=== PATIENT | female | born 1970 | race Caucasian/White ===

== ENCOUNTER → 2023-11-05 | Outpatient (CLI) | payer BC ==
--- NOTE | 2023-11-06 10:12 | MM ---
Reason for Exam: Screening (asymptomatic). Last mammogram was performed 1 year(s) and 2 month(s) ago. Patient History: Menarche at age 12. First Full-Term at age 41. Late child-bearing (after 30). Patient used Hormonal Contraceptives for 15 years. Last menstrual period: 11/02/2023 Risk Values: Ni 5 year model risk: 1.5%. NCI Lifetime model risk: 11.6%. Tissue Density: The breast tissue is extremely dense which could obscure a lesion on mammography. Findings: Analyzed By CAD. There is no suspicious group of microcalcifications or new suspicious mass in either breast. Benign calcifications. There is a density within the inner central margin of the left breast for which spot compression views recommended. Overall Assessment: Incomplete: need additional imaging evaluation, BI-RAD 0 Management: Special View Mammogram of the left breast. . Patient should continue monthly self-breast exams. A clinical breast exam by your physician is recommended on an annual basis. This exam should not preclude additional follow-up of suspicious palpable abnormalities. Note on Ni scores and lifetime risk: 1. A Ni score greater than 3% is considered moderate risk. If this is the case, consider specialist referral to assess eligibility for a risk reducing agent. 2. If overall lifetime risk for the development of breast cancer is 20% or higher, the patient may qualify for future screening with alternating mammogram and breast MRI. Electronically signed and approved by: Ketan Saavedra M.D. Radiologis
== END | disposition home or self-care (01) ==
LOC: RADMAMWWP 09:28
PROVIDERS: ATTEND Family Medicine
DX: Z12.31 Encounter for screening mammogram for malignant neoplasm of breast (principal)
CPT/HCPCS: 77063; 77067

== ENCOUNTER → 2023-11-07 | Outpatient (CLI) | payer BC ==
--- NOTE | 2023-11-07 08:33 | MM ---
Reason for Exam: Additional evaluation requested from abnormal screening. Last screening mammogram was performed less than 1 month ago. Patient History: Menarche at age 12. First Full-Term at age 41. Late child-bearing (after 30). Patient has history of breast feeding. Patient used Hormonal Contraceptives for 15 years. Risk Values: Ni 5 year model risk: 1.5%. NCI Lifetime model risk: 11.6%. Prior Study Comparison: 06/28/2021 Bilateral Diagnostic Mammogram, [facility] 09/05/2022 Bilateral Screening Mammogram, [facility]. 11/05/2023 Bilateral MG 3D screening mammo w/cad, [facility]. Tissue Density: Left: The breast tissue is heterogeneously dense. This may lower the sensitivity of mammography. Findings: Analyzed By CAD. Focal asymmetry versus dense patch of tissue located at approximately 9:00 position, incompletely disperses on additional views. Further ultrasound evaluation recommended. Overall Assessment: Incomplete: need additional imaging evaluation, BI-RAD 0 Management: Diagnostic Breast Ultrasound of the left breast. 7:00 to 11:00 medial portion. Electronically signed and approved by: Arely Barton M.D. Radiologist
--- NOTE | 2023-11-07 10:01 | USB ---
Reason for Exam: Additional evaluation requested from abnormal screening. Patient History: Menarche at age 12. First Full-Term at age 41. Late child-bearing (after 30). Patient has history of breast feeding. Patient used Hormonal Contraceptives for 15 years. Risk Values: Ni 5 year model risk: 1.5%. NCI Lifetime model risk: 11.6%. Technique: Method: Targeted. Prior Study Comparison: 06/28/2021 Bilateral Diagnostic Mammogram, [facility] 09/05/2022 Bilateral Screening Mammogram, [facility] 11/05/2023 Bilateral MG 3D screening mammo w/cad, [facility]. Findings: The lower inner quadrant of the left breast, the axilla of the left breast and the retroareolar of the left breast were scanned. Targeted ultrasound medial left breast 6:00 to 12:00 including scanning of the subareolar region and axilla. There is a small benign 5 mm cyst at the 6:00 position. Some scattered patchy dense tissue is present. No other solid or cystic lesion or axillary lymphadenopathy. Overall Assessment: Probably benign, BI-RAD 3 Management: Diagnostic Mammogram of the left breast in 6 months. A clinical breast exam by your physician is recommended on an annual basis and results should be correlated with mammographic findings. This exam should not preclude additional follow-up of suspicious palpable abnormalities. Results were given to the patient verbally at the time of exam. Electronically signed and approved by: Arely Barton M.D. Radiologist
== END | disposition home or self-care (01) ==
LOC: RADMAMWWP 07:57
PROVIDERS: ATTEND Family Medicine
DX: R92.332 Mammographic heterogeneous density, left breast (principal)
CPT/HCPCS: 77061; 77065

== ENCOUNTER 2023-12-05 08:41 | Day surgery (SDC) | payer BC ==
[2023-12-03 09:42] VITALS: BMI 26.6
[~2023-12-05 08:41] MED LIST: LACTATED RINGERS 1,000 ML IV SCH; LIDOCAINE 1% (10MG/ML) FOR IV START INTRADERMA PRN
[2023-12-05] MEDS: LACTATED RINGERS 1,000 ML IV ONE (09:48)
[2023-12-05] MEDS ORDERED: ONDANSETRON 4 MG/2 ML VIAL ONE (09:52)
[2023-12-05] MEDS: ONDANSETRON 4 MG/2 ML VIAL IVP ONE (09:55)
[2023-12-05] MEDS ORDERED: PROPOFOL 10 MG/ML 20 ML VIAL IV ONE (10:00)
[2023-12-05 10:08] VITALS: RESP 16; TEMP 97.5
--- NOTE | 2023-12-05 10:47 | P.PCN ---
Date of Procedure: 12/05/23 Procedure(s) Performed: BRIEF HISTORY: Patient is a 53-year-old pleasant white female scheduled for an elective colonoscopy as a part of screening for colon cancer. Her grandmother was diagnosed with colon cancer at age 70 PROCEDURE PERFORMED: Colonoscopy. PREOPERATIVE DIAGNOSIS: Screening for colon cancer/family history of colon cancer . IV sedation per Anesthesia. PROCEDURE: After informed consent was obtained, the patient, was brought into the endoscopy unit. IV sedation was administered by Anesthesia under continuous monitoring. Digital rectal examination was normal. Initially the Olympus CF-160 flexible video colonoscope was then inserted in the rectum, gradually advanced into the cecum without any difficulty. Careful examination was performed as the scope was gradually being withdrawn. Ileocecal valve and the appendiceal orifice were visualized and appeared normal. Prep was excellent. Mucosa of the cecum, ascending colon, transverse colon, descending colon, sigmoid colon, and rectum appeared normal. Scattered sigmoid diverticulosis. Retroflexion was performed in the rectum and small internal hemorrhoids were seen. The patient tolerated the procedure well. IMPRESSION: Normal-appearing colon from rectum to cecum with no evidence of colorectal neoplasia. Scattered sigmoid diverticulosis Small internal hemorrhoids RECOMMENDATIONS: Findings of this examination were discussed with the patient as well as a family. She was advised to have a repeat screening colonoscopy in 10 years..
[2023-12-05 11:20] VITALS: BP 118/74; PULSE 67
== END 2023-12-05 11:16 | disposition home or self-care (01) ==
LOC: ORWHC2ENDO 08:41
PROVIDERS: ATTEND Internal Medicine Gastroenterology
DX: Z12.11 Encounter for screening for malignant neoplasm of colon (principal); K57.30 Diverticulosis of large intestine without perforation or abscess without bleeding; K64.8 Other hemorrhoids; Z80.0 Family history of malignant neoplasm of digestive organs; Z79.899 Other long term (current) drug therapy
CPT/HCPCS: 81025; 45378; J2405; J2704

== ENCOUNTER → 2024-06-24 | Outpatient (CLI) | payer BC ==
--- NOTE | 2024-06-24 10:06 | MM ---
Reason for Exam: Follow-up at short interval from prior study. Last screening mammogram was performed 8 month(s) ago. Patient History: Menarche at age 12. First Full-Term at age 41. Late child-bearing (after 30). Patient has history of breast feeding. Patient used Hormonal Contraceptives for 15 years. Risk Values: Ni 5 year model risk: 1.6%. NCI Lifetime model risk: 11.4%. Prior Study Comparison: 09/05/2022 Bilateral Screening Mammogram, [facility] 11/05/2023 Bilateral MG 3D screening mammo w/cad, [facility]. 11/07/2023 Left MG 3D work up w/cad , [facility]. Tissue Density: Left: The breasts are heterogeneously dense, which may obscure small masses. Findings: Analyzed By CAD. There is continued distortion noted at the left 9:00 position approximately 7 cm from the nipple which improves on the CT of the additional images obtained however does persist on other views. Given negative ultrasound previously I do recommend MRI for further characterization. Overall Assessment: Incomplete: need additional imaging evaluation, BI-RAD 0 Management: Diagnostic Breast MRI of both breasts. . Results were given to the patient verbally at the time of exam. Patient should continue monthly self-breast exams. A clinical breast exam by your physician is recommended on an annual basis. This exam should not preclude additional follow-up of suspicious palpable abnormalities. Note on Ni scores and lifetime risk: 1. A Ni score greater than 3% is considered moderate risk. If this is the case, consider specialist referral to assess eligibility for a risk reducing agent. 2. If overall lifetime risk for the development of breast cancer is 20% or higher, the patient may qualify for future screening with alternating mammogram and breast MRI. [facility], , 06/24/2024 10:02 AM. Electronically signed and approved by: Pradip Moore M.D. Radiologis
== END | disposition home or self-care (01) ==
LOC: RADUSWWP 09:17
PROVIDERS: ATTEND Family Medicine
CPT/HCPCS: 77061; 77065

== ENCOUNTER → 2024-08-08 | Outpatient (CLI) | payer BC ==
--- NOTE | 2024-08-11 09:03 | BMR ---
EXAM DATE: 08/08/2024 EXAM DESCRIPTION: MRI-Breast Bilat (W/WO Contrast) INDICATION: Abnormal breast mammogram 06/24/2024 showed architectural distortion COMPARISON: PRIOR MRIs: None available. Correlation to mammograms: Mammogram 06/24/2024. Correlation to ultrasound: 11/07/2023 CONTRAST: 8 cc Gadavist IV gadolinium contrast TECHNIQUE: Multiplanar multisequence MR imaging of both breasts was performed with a dedicated breast coil. Images were obtained before and after administration of IV gadolinium, using the standard breast mass protocol. Computer aided detection was utilized for interpretation. FINDINGS: LMP: Postmenopausal General breast composition: The breast is heterogeneously dense Background parenchymal enhancement: Moderate to marked enhancement. RIGHT BREAST: The T2 weighted series shows no areas of abnormal signal intensity. Review of the dynamic series shows no early or abnormal enhancement. LEFT BREAST: The T2 weighted series shows no areas of abnormal signal intensity. Review of the dynamic series shows no early or abnormal enhancement. Specific attention to the medial left breast without suspicious enhancement. LYMPH NODES: There is no evidence of internal mammary or axillary adenopathy. IMPRESSION: RIGHT BREAST: No MR evidence of malignancy. LEFT BREAST: No MR evidence of malignancy. No suspicious enhancement at the area of mammographic concern in the medial left breast. OVERALL ASSESSMENT -- BI-RADS 2: Benign ANNUAL SCREENING BREAST MRI IN ADDITION TO MAMMOGRAPHY IS RECOMMENDED IN PATIENTS WITH LIFETIME RISK OF BREAST CANCER >20% MTDD
== END | disposition home or self-care (01) ==
LOC: RADMRIMAIN 07:21
PROVIDERS: ATTEND Family Medicine
DX: R92.8 Other abnormal and inconclusive findings on diagnostic imaging of breast (principal); Z78.0 Asymptomatic menopausal state
CPT/HCPCS: 77049; A9585